=== PATIENT | female | born 2000 | race Caucasian/White ===

== ENCOUNTER 2024-09-11 10:29 | Emergency (ER) | payer OTHER, SELFPAY ==
[2024-09-11 10:32] VITALS: BP 111/69; PULSE 66; RESP 14; TEMP 36.7; O2SAT 100
[2024-09-11] MEDS: dexAMETHasone SOD PHOS INJ 10 MG/ML 1 ML VIAL IM (10:56)
[2024-09-11 11:07] LABS: Strep Group A RT-PCR NOT DETECTED (Negative)
--- NOTE | 2024-09-11 11:08 | ED.GENADULT ---
HPI - General Adult General Chief complaint: Unspecified Stated complaint: sore throat Time Seen by Provider: 09/11/24 10:39 Source: patient Mode of arrival: ambulatory Limitations: no limitations History of Present Illness HPI narrative: patient is a 24-year-old female who presents the ED with report of a sore throat. Patient reports having a sore throat since Wednesday, reports having some painful swallowing. Reports intermittent fevers over the last couple of days. Reports mild cough. Took ibuprofen and DayQuil prior to arrival. Denies known sick contacts she Related Data Allergies Allergy/AdvReac Type Severity Reaction Status Date / Time No Known Allergies Allergy Verified 09/11/24 10:35 Review of Systems Review of Systems: All systems reviewed & are unremarkable except as noted in HPI. All systems reviewed & are unremarkable except as noted in HPI and below PMFSH Family History Family History Other Hypertension Social History Social History Smoking status: Never smoker Alcohol intake: never Exam Narrative: GENERAL: Well appearing, well-nourished, non-toxic, in no acute distress. HEAD: Normocephalic, atraumatic. ENT: Moderate posterior pharynx erythema. No significant tonsillar hypertrophy, slight exudate noted. Uvula midline and nonedematous. Slight muffling noted to voice, but no stridor or trismus. Maintaining secretions. RESPIRATORY: Airway patent, respirations nonlabored. No stridor or distress. CARDIOVASCULAR: Regular rate and rhythm without murmurs, rubs, or gallops. MUSCULOSKELETAL: Moves all extremities. No gross deformities. SKIN: Warm, dry, normal color. NEURO: A&O X3. Speech clear. PSYCHIATRIC: Appropriate mood and affect. Normal interaction. Course Vital Signs Vital signs: Vital Signs Temperature 98.0 F 09/11/24 10:32 Pulse Rate 66 09/11/24 10:32 Respiratory Rate 14 09/11/24 10:32 Blood Pressure 111/69 09/11/24 10:32 Pulse Oximetry 100 09/11/24 10:32 Oxygen Delivery Room Air 09/11/24 10:32 Temperature 98.0 F 09/11/24 10:32 Pulse Rate 68 09/11/24 11:22 Respiratory Rate 16 09/11/24 11:22 Blood Pressure 110/62 09/11/24 11:22 Pulse Oximetry 100 09/11/24 11:22 Oxygen Delivery Room Air 09/11/24 10:32 Medical Decision Making MDM Narrative Medical decision making narrative: No signs of respiratory compromise or distress. Exam does not appear consistent with peritonsillar abscess. Strep testing negative. Offered to swab for COVID / influenza however patient politely declined. Will treat for tonsillitis with antibiotics. Given dose of Decadron and Augmentin in the ED. Discussed strict return precautions. D/C in stable condition. Vital signs stable at time of D/C. Medical Records Medical records reviewed: Yes I reviewed the external patient's medical records. Vital Signs Vital Signs: Vital Signs Temperature 98.0 F 09/11/24 10:32 Pulse Rate 66 09/11/24 10:32 Respiratory Rate 14 09/11/24 10:32 Blood Pressure 111/69 09/11/24 10:32 Pulse Oximetry 100 09/11/24 10:32 Oxygen Delivery Room Air 09/11/24 10:32 Temperature 98.0 F 09/11/24 10:32 Pulse Rate 68 09/11/24 11:22 Respiratory Rate 16 09/11/24 11:22 Blood Pressure 110/62 09/11/24 11:22 Pulse Oximetry 100 09/11/24 11:22 Oxygen Delivery Room Air 09/11/24 10:32 Lab Data Lab results reviewed: Yes I reviewed the patient's lab results. Labs: Lab Results 09/11/24 Range/Units 10:37 Group A Strep (PCR) Not detected (Negative) Discharge Plan Discharge Clinical Impression: Acute tonsillitis Qualifiers: Pharyngitis/tonsillitis etiology: unspecified etiology Qualified Code(s): J03.90 - Acute tonsillitis, unspecified Patient Disposition: Home, Self-Care Condition: Stable Instructions: Antibiotic Form, Tonsillitis (ED) Additional Instructions: Take antibiotics as prescribed. Stay well hydrated. Continue Tylenol and ibuprofen as needed for discomfort/ fevers. You may continue [id number] cough and cold medicines as well. Return to the ED if you experience worsening or severe symptoms, unable to keep down food or drink, difficulty breathing or swallowing, or any other symptoms of concern Prescriptions: New amoxicillin-pot clavulanate 875-125 mg tablet 1 tablet PO Q12H 7 Days Qty: 14 0RF Follow-up/Referrals: Anuj Zuluaga MD [Primary Care Provider] - Time of Disposition: 11:11
[2024-09-11] MEDS: AMOXICILLIN/CLAVULANATE K 875-125 MG TAB 1 TABLET PO (11:15)
[2024-09-11 11:22] VITALS: BP 110/62; PULSE 68; RESP 16; O2SAT 100
== END 2024-09-11 11:23 | disposition home or self-care (01) ==
LOC: ANHED 11:16
PROVIDERS: Emergency Medicine; Emergency Provider Physician Assistant; PCP Pediatrics
DX: J03.90 Acute tonsillitis, unspecified (principal)
CPT/HCPCS: 87651; 96372; 99283; A9270; J1100